=== PATIENT | male | born 1995 | race American Indian/Alaskan Native ===

== ENCOUNTER 2021-10-01 17:17 | Emergency (ER) | payer SELFPAY ==
--- NOTE | 2021-10-01 19:05 | XRay Report ---
RIGHT FOOT 4 VIEWS INDICATION / CLINICAL INFORMATION: Right foot injury. COMPARISON: None available. FINDINGS: BONES and JOINT(S): There is an acute minimally displaced fracture of the tip of the distal phalanx o f the first toe. No dislocation or other acute abnormality. No significant arthritis. SOFT TISSUES: Mild edema is seen along the first toe. ADDITIONAL FINDINGS: None. IMPRESSION: 1. Acute right first toe fracture as above. Signer Name: Al Rodriguez MD Signed: 10/01/2021 7:01 PM Workstation Name: [email or web address]
[2021-10-01] MEDS ORDERED: cephALEXin 500 MG CAP PO ONE (22:34)
[2021-10-01] MEDS ORDERED: traMADol 50 MG TAB PO ONE (22:34)
[2021-10-01] MEDS ORDERED: LIDOCAINE-MPF (1%) 10 MG/1 ML VIAL 5 ML INFILTRATI ONE (22:34)
--- NOTE | 2021-10-01 23:10 | Emergency Department Report ---
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 Patient states 7/10 pain swelling and blister with throbbing to right distal toe. There is no broken skin no laceration or bleeding. Patient is partial weightbearing. Patient denies fevers or chills. 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 Pain is exacerbated by ambulation. Pain is relieved by nothing tried. MD Complaint: foot injury - Related Data Previous Rx's Medication Instructions Recorded Last Taken Type traMADoL [Ultram] 50 mg PO Q6HR PRN #12 tablet 10/01/21 Unknown Rx Allergies Allergy/AdvReac Type Severity Reaction Status Date / Time No Known Allergies Allergy Verified 10/01/21 18:29 ED Review of Systems ROS: Stated complaint: RT FOOT BIG TOE/WORK RELATED Other details as noted in HPI Constitutional: denies: chills, fever Eyes: denies: eye pain, eye discharge, vision change ENT: denies: ear pain, throat pain Respiratory: denies: cough, shortness of breath, wheezing Cardiovascular: denies: chest pain, palpitations Endocrine: no symptoms reported Gastrointestinal: denies: abdominal pain, nausea, diarrhea Genitourinary: denies: urgency, dysuria Musculoskeletal: other (Right distal great toe pain and swelling) Skin: denies: rash, lesions Neurological: denies: headache, weakness, paresthesias Psychiatric: denies: anxiety, depression Hematological/Lymphatic: denies: easy bleeding, easy bruising ED Past Medical Hx - Medications Home Medications: Home Medications Medication Instructions Recorded Confirmed Last Taken Type traMADoL [Ultram] 50 mg PO Q6HR PRN #12 tablet 10/01/21 Unknown Rx ED Physical Exam - General Limitations: No Limitations General appearance: alert, in no apparent distress - Head Head exam: Present: normocephalic, normal inspection - Eye Eye exam: Present: normal appearance, EOMI Pupils: Present: normal accommodation - ENT ENT exam: Present: mucous membranes moist - Neck Neck exam: Present: normal inspection, full ROM. Absent: tenderness, lymphadenopathy - Respiratory Respiratory exam: Present: normal lung sounds bilaterally. Absent: respiratory distress, wheezes - Cardiovascular Cardiovascular Exam: Present: regular rate, normal rhythm, normal heart sounds. Absent: systolic murmur, diastolic murmur, rubs, gallop - GI/Abdominal GI/Abdominal exam: Present: soft, normal bowel sounds. Absent: distended, tenderness - Rectal Rectal exam: Present: deferred - Extremities Exam Extremities exam: Present: normal inspection - Expanded Lower Extremity Exam Right Foot/Toe exam: Present: tenderness, swelling, erythema, subungual hematoma. Absent: deformity, crepidus, puncture wound, foreign body, calcaneal tenderness, tenderness at base of 5th metatarsal, nail avulsion Neuro vascular tendon exam: Absent: pulse deficit, motor deficit, sensory deficit, tendon deficit, foot drop Gait: Positive: observed and limited by pain - Back Exam Back exam: Present: normal inspection, full ROM. Absent: CVA tenderness (R), CVA tenderness (L) - Neurological Exam Neurological exam: Present: alert, oriented X3, CN II-XII intact, reflexes normal. Absent: motor sensory deficit - Expanded Neurological Exam Expanded Patient oriented to: Present: person, place, time Speech: Present: fluid speech Motor strength exam: RUE: 5, LUE: 5, RLE: 5, LLE: 5 DTR: ankle (R): 1+, ankle (L): 1+ Best Eye Response ([place]): (4) open spontaneously Best Motor Response (Lucia): (6) obeys commands Best Verbal Response (Lucia): (5) oriented Lucia Total: 15 - Psychiatric Psychiatric exam: Present: normal affect, normal mood - Skin Skin exam: Present: warm, dry, intact, normal color, ecchymosis (Ecchymosis bruising swelling hematoma on the right distal toe no nail involvement). Absent: rash ED Course Vital Signs 10/01/21 18:29 Temperature 98.4 F Pulse Rate 65 Respiratory 16 Rate Blood Pressure 124/77 [Left] O2 Sat by Pulse 99 Oximetry - Procedure Description Procedures done: subungual hematoma toe right, pt refuses nail removal , anesthesia with 1% lidocaine x2 cc. Wound cleaned with Betadine solution. Aspirated hematoma with 18-gauge needle. Patient tolerated procedure with minimal distress. Distal pulses remain intact there is no nerve muscle or tendon damage. Patient will follow-up primary care doctor in 2 days for wound check. Sterile dressings applied, all bleeding is controlled. Patient tolerated procedure with minimal distress. ED Lower Extremity MDM - Radiology Data Radiology results: report reviewed, image reviewed RIGHT FOOT 4 VIEWS INDICATION / CLINICAL INFORMATION: Right foot injury. COMPARISON: None available. FINDINGS: BONES and JOINT(S): There is an acute minimally displaced fracture of the tip o f the distal phalanx of the first toe. No dislocation or other acute abnormality. No significant arthritis. SOFT TISSUES: Mild edema is seen along the first toe. ADDITIONAL FINDINGS: None. IMPRESSION: 1. Acute right first toe fracture as above. Signer Name: Al Rodriguez MD Signed: 10/01/2021 7:01 PM Workstation Name: [id number] Transcribed By: RICARDO Dictated By: Al Rodriguez MD Electronically Authenticated By: Al Rodriguez MD Signed Date/Time: 10/01/211900 DD/ 99 TD/TT: - Medical Decision Making This is a distal total fracture with hematoma. Hematoma drain see procedure note. Patient given Ortho shoe and crutches. Patient demonstrates safe use of crutches. Distal pulses +2 bilaterally. There is no step-off no crepitus no gross deformity. Plan DC to home, take meds as prescribed, follow-up with orthopedics in 2 to 3 days. Patient verbalized agreement understanding of discharge plan. Patient DC'd home in stable condition at this time. Critical care attestation.: If time is entered above; I have spent that time in minutes in the direct care of this critically ill patient, excluding procedure time. ED Disposition Clinical Impression: Closed fracture of great toe of right foot Qualifiers: Encounter type: initial encounter Phalanx: distal Fracture alignment: displaced Qualified Code(s): S92.421A - Displaced fracture of distal phalanx of right great toe, initial encounter for closed fracture Subungual hematoma of great toe of right foot Qualifiers: Encounter type: initial encounter Qualified Code(s): S90.211A - Contusion of right great toe with damage to nail, initial encounter Disposition: HOME / SELF CARE / HOMELESS Is pt being admited?: No Does the pt Need Aspirin: No Condition: Stable Instructions: Toe Fracture, [id number], Crutch Use, Adult, [id number] Additional Instructions: Take medications as prescribed, follow-up with your doctor in 2 to 3 days for wound check. Return to emergency department should symptoms worsen. Prescriptions: traMADoL [Ultram] 50 mg PO Q6HR PRN #12 tablet PRN Reason: Pain Referrals: ALIX NASH MD [Staff Physician] - 3-5 Days Forms: Work/School Release Form(ED) Time of Disposition: 23:16
[2021-10-02 00:24] VITALS: BP 126/79
== END 2021-10-02 00:24 | disposition home or self-care (01) ==
LOC: ED 17:17
DX: S92.401A Displaced unspecified fracture of right great toe, initial encounter for closed fracture (principal); S90.211A Contusion of right great toe with damage to nail, initial encounter; W04.XXXA Fall while being carried or supported by other persons, initial encounter; Y93.89 Activity, other specified; Y92.89 Other specified places as the place of occurrence of the external cause; Y99.8 Other external cause status
CPT/HCPCS: 11740; 73630; 99283; J3490